=== PATIENT | female | born 1945 | race Caucasian/White ===

== ENCOUNTER 2018-12-23 14:27 | Inpatient (IN) | payer OTHER ==
[~2018-12-23] VITALS: Ht 170.2 cm; Wt 75.7 kg
--- NOTE | ~2018-12-23 | CON ---
[address] [address] CONSULTATION Name: RENETTA SIMPSON Dagoberto Room: [address] IN ..#: [id number] Admission: 12/23/18 Attend Phys: Mikael Corona MD Discharge: Date of : 49 Report #: [id number] THIS REPORT FOR: //name// CC: Mauro Corona DATE OF SERVICE: 12/24/2018 NEUROLOGY CONSULT: HISTORY OF PRESENT ILLNESS: The patient is a 73-year-old female who has a history of orthostatic hypotension. In fact, she is followed by Dr. Hanna who is a national accounts sales. She last saw him last week and had an echocardiogram at that time. The patient has bilateral hip pain and got a cortisone injection in both hips on Friday. When she checked her blood pressure, she felt that it was high, was in the 140s over 99. When she saw what her blood pressure was, she decided not to take the Florinef and had not taken it for 3 days. Yesterday, when she went to lunch with friends, she began to feel overheated. She took off her coat. She applied a cold cloth to her forehead, but that did not help. Her friend who was with her at lunch, states that the patient was out for approximately 15 seconds. PAST MEDICAL HISTORY: Orthostatic hypotension, asthma, hiatal hernia, GERD, hypothyroidism. PAST SURGICAL HISTORY: Unremarkable. MEDICATIONS: Levothyroxine 88 mcg daily, Nexium 40 mg daily, Singulair 10 mg daily, Florinef 0.1 mg daily. ALLERGIES: LEVAQUIN. PHYSICAL EXAMINATION: VITAL SIGNS: Blood pressure in the ER 110/40. Blood pressure this morning 124/50, pulse rate 60, respiratory rate 18, bedside pulse oximetry 99% on room air, temperature 36.3. LABORATORY DATA: Hematology: White blood cell count 7.4, hemoglobin 11.8, hematocrit 37.1, MCV 80.9, platelet count 337,000. Urinalysis 1+ ketones, trace blood. Chemistry: Sodium 144, potassium 4.3, chloride 108, carbon dioxide 28, BUN 18, creatinine 0.8, GFR 71, glucose 98, calcium 9.1, magnesium 2.2. Liver functions unremarkable. IMAGING: CT scan of the head demonstrates no acute abnormalities, diffuse cerebral atrophy [place] [address] CONSULTATION Name: RENETTA SIMPSON Room: [address]#: [id number] Admission: 12/23/18 Attend Phys: Mikael Corona MD Discharge: Date of : 49 Report #: [id number] NEUROLOGIC: Cranial nerves 2-12 are grossly intact. Motor exam demonstrates symmetrical strength in all 4 extremities with tone and bulk normal. Plantar responses are flexor bilaterally. Coordination reveals intact [id number]. Gait was not tested. IMPRESSION: This patient has a documented history of orthostatic hypotension and had not been taking her medication for several days. I explained to her that if she were to become over heated for example, in a crowded room or taking a hot shower that will lower her blood pressure and that in combination with not taking her medication caused this episode. She is now back on Florinef 0.1 mg daily. I recommend she continue the medication and explained to her that she cannot take the medication on an as needed basis that she needs to take it every morning. She told me that her national accounts sales, Dr. Hanna, has already told her this. Beyond that, I have no further recommendations. The patient is being seen by Cardiology here in the hospital. Perhaps, a cardiac arrhythmia needs to be considered, but the description of the event itself seems most consistent with orthostatic hypotension. I thank you for your kind referral of this patient. By: 1059 Leelee Sinha DO /tere
[2018-12-23 14:29] VITALS: BP 110/40
[2018-12-23] MEDS ORDERED: SINGULAIR 10 MG10 M1 PO (14:36)
[2018-12-23] MEDS ORDERED: NEXIUM40 MG PO (14:36)
[2018-12-23] MEDS ORDERED: SYNTHROID88 MCG PO (14:36)
[2018-12-23] MEDS ORDERED: FLORINEF ACETA0.1 MG PO (14:37)
[2018-12-23 15:05] LABS: HEMATOCRIT 40.3 % (37.0-47.0); HEMOGLOBIN 12.8 gm/dL (12.0-15.0); MCH 25.6 pg (26.0-34.0); MCHC 31.7 g/dL (28.0-37.0); MCV 80.7 fL (80.0-100.0); MPV 8.3 fl. (7.2-11.1); NUCLEATED RBCS 0 /100WBC; PLATELET COUNT* 363 thou/uL (150-400); RDW-CV 16.6 % (10.5-14.5); WBC 8.6 thou/uL (4.0-11.0)
[2018-12-23 15:23] LABS: ANION GAP 12 mmol/L (7-16); BUN 19 mg/dL (7-18); CALCIUM 8.8 mg/dL (8.5-10.1); CHLORIDE 103 mmol/L (98-107); CO2 26 mmol/L (21-32); GLUCOSE 130 mg/dL (70-99); POTASSIUM 3.6 mmol/L (3.5-5.1); SODIUM 141 mmol/L (136-145); TROPONIN-I LEVEL <0.06 ng/mL (<0.06)
[2018-12-23 15:24] LABS: ALBUMIN 3.7 g/dL (3.4-5.0); ALKALINE PHOSPHATASE 72 U/L (46-116); LIPASE 168 U/L (73-393); NT-PRO BRAIN NAT PEPTIDE 63 pg/mL (<300); SGOT 13 U/L (15-37); SGPT 30 U/L (30-65); TOTAL BILIRUBIN 0.4 mg/dL (<0.1-1.0); TOTAL PROTEIN 7.2 g/dL (6.4-8.2)
[2018-12-23 15:38] LABS: ABSOLUTE BASOPHILS 0.2 thou/uL (0.0-0.2); ABSOLUTE EOSINOPHILS 0.2 thou/uL (0.0-0.7); ABSOLUTE MONOCYTES 0.5 thou/uL (0.0-1.2); ABSOLUTE NEUTROPHILS 4.7 thou/uL (1.6-8.1)
[2018-12-23 15:39] LABS: LARGE PLATELETS OCCASIONAL; PLATELET ESTIMATE ADEQUATE
[2018-12-23 18:08] LABS: URINE BILIRUBIN NEGATIVE (Negative); URINE BLOOD TRACE (Negative); URINE CLARITY CLEAR; URINE COLOR YELLOW; URINE GLUCOSE-RANDOM NEGATIVE (Negative); URINE KETONES 1+ (Negative); URINE LEUKOCYTES-REFLEX NEGATIVE (Negative); URINE NITRITE-REFLEX NEGATIVE (Negative); URINE PROTEIN NEGATIVE (Negative); URINE SPECIFIC GRAVITY 1.015 (1.005-1.030); URINE UROBILINOGEN 0.2 E.U./dl (0.2-1.0)
[2018-12-23 20:00] VITALS: BP 136/66
[2018-12-23 21:21] VITALS: BP 128/54
[2018-12-23] MEDS ORDERED: CARAFATE 1 GM TA1 G1 PO (22:14)
[2018-12-23] MEDS ORDERED: PROAIR HFA8.5 GM SPRAY (22:18)
[2018-12-24] VITALS: BP 135/62
[2018-12-24 04:00] VITALS: BP 136/66; BP 96/46
[2018-12-24] MEDS ORDERED: EXCEDRIN CAPLE1 EACH PO (04:33)
[2018-12-24 05:01] LABS: ABSOLUTE BASOPHILS 0.1 thou/uL (0.0-0.2); ABSOLUTE EOSINOPHILS 0.3 thou/uL (0.0-0.7); ABSOLUTE LYMPHOCYTES 1.9 thou/uL (0.8-5.3); ABSOLUTE MONOCYTES 0.7 thou/uL (0.0-1.2); ABSOLUTE NEUTROPHILS 4.4 thou/uL (1.6-8.1); HEMATOCRIT 37.1 % (37.0-47.0); HEMOGLOBIN 11.8 gm/dL (12.0-15.0); MCH 25.7 pg (26.0-34.0); MCHC 31.7 g/dL (28.0-37.0); MCV 80.9 fL (80.0-100.0); MONOCYTES 9.3 %; MPV 8.4 fl. (7.2-11.1); NUCLEATED RBCS 0 /100WBC; PLATELET COUNT* 337 thou/uL (150-400); POLYS 58.7 %; RBC 4.59 mil/uL (4.20-5.00); RDW-CV 16.6 % (10.5-14.5); WBC 7.4 thou/uL (4.0-11.0)
[2018-12-24 05:10] LABS: CALCIUM 9.1 mg/dL (8.5-10.1); CREATININE 0.8 mg/dL (0.6-1.3); MAGNESIUM 2.2 mg/dL (1.8-2.4); POTASSIUM 4.3 mmol/L (3.5-5.1)
--- NOTE | 2018-12-24 05:33 | NUR ---
RECEIVED REPORT FROM ED RN. PT TRANSFERRED TO 203. PT A&OX4. VSS. CHANNELER INSOLE IN PLACE. ADMISSION HISTORY AND PHYSICAL ASSESSMENT COMPLETED & CHARTED. FALL FORM SIGNED. ORIENTED TO ROOM & CALL LIGHT. PT ON RA WITH 96% O2 SAT. PT TRACING SR/SB ON TELE. PT UPSTANDBY TO RESTROOM. INSTRUCTED ON NPO EXCEPT MEDS/SIPS OF LIQUID. COMMUNICATES UNDERSTANDNING. PT COMPLAINED OF HEADACHE- DR GEORGE INFORMED WITH NEW ORDER. HOURLY ROUNDING OBSERVED. CALL LIGHT WITHIN REACH.
[2018-12-24 08:04] VITALS: BP 124/50
--- NOTE | 2018-12-24 08:20 | NUR ---
ASSUMED CARE OF PT THIS AM AROUND 07- STRADDLE TRUCK DRIVER IN PLACE ORDERED, TRACING SR- UPON ASSESSMENT PT NOTED TO BE RESTING IN BED, WATCHING TV- PT A&O X4- CONTINENT OF BOWEL AND BLADDER- SBA WITH TRANSFERS FOR SAFETY- LCTA, RESP EVEN AND UN-LABORED- VSS, O2 SAT 97% ON RA- ABD SOFT/ROUND/NON-TENDER, BS X4 QUADS- LAST BM REPORTED THIS AM- PT CURRENLTY NPO PENDING CARDIOLOGY CONSULT- IV NOTED TO LEFT WRIST INTACT, IVF INFUSSING PRESCIBED- PT DENIES ANY C/O PAIN/DISCOMFORT AT THIS TIME- CALL LIGHT AND PERSONAL BELONGINGS WITH IN REACH- PT MAKES NEEDS KNOWN- ALL NEEDS MET AT THIS TIME-WCTM
[2018-12-24 12:35] VITALS: BP 122/48
[2018-12-24 13:50] LABS: CHOLESTEROL 202 mg/dL (<200); HDL CHOLESTEROL 70 mg/dL (>40); LDL CHOLESTEROL 123 mg/dL (<100); SERUM ASSESSMENT CLEAR; TC:HDL 2.9 Ratio (Not establshd); TRIGLYCERIDE 46 mg/dL (<150); VLDL 9 mg/dL (<40)
--- NOTE | 2018-12-24 15:04 | EKG ---
[place] [address] ELECTROCARDIOGRAM REPORT Name: RENETTA SIMPSON Room: [address] ADM IN M.R.#: [id number] Admission: 12/23/18 Attend Phys: Mikael Corona MD Discharge: Date of : 49 Report #: [id number] THIS REPORT FOR: //name// [facility] ED Test Date: 2018-12-23 Test Time: 14:42:40 Pat Name: RENETTA SIMPSON Department: Room: [facility] Gender: F Residential Property Consultant: Anjelica CERDA : 1945 Requested By: Melodie Castellano Order Number: [id number] MD: Art Blancas Measurements Intervals [place] Rate: 55 P: 62 IN: 169 QRS: 56 QRSD: 122 T: 61 QT: 473 QTc: 453 Interpretive Statements Sinus rhythm Nonspecific intraventricular conduction delay No previous ECG available for comparison Electronically Signed On 12-24-2018 15:04:01 CDT by Art Blancas [email or web address] <ELECTRONICALLY SIGNED> By: Art Blancas MD, [facility] 12/24/18 1504 1442 144 Art Blancas MD, FACC /EPI
--- NOTE | 2018-12-24 15:07 | EKG ---
[place] [address] ELECTROCARDIOGRAM REPORT Name: RENETTA SIMPSON Room: [address] ADM IN M.R.#: [id number] Admission: 12/23/18 Attend Phys: Mikael Corona MD Discharge: Date of : 49 Report #: [id number] THIS REPORT FOR: //name// [facility] Test Date: 2018-12-24 Test Time: 02:47:29 Pat Name: RENETTA SIMPSON Department: Room: [facility] Gender: F Midwife Practitioner: : 1945 Requested By: Mikael Corona Order Number: [id number] MD: Art Blancas Measurements Intervals [place] Rate: 58 P: 47 [place]: 156 QRS: 55 QRSD: 96 T: 65 QT: 448 QTc: 441 Interpretive Statements Sinus rhythm Abnormal R-wave progression, early transition No previous ECG available for comparison Electronically Signed On 12-24-2018 15:06:56 CDT by Art Blancas [email or web address] <ELECTRONICALLY SIGNED> By: Art Blancas MD, [facility] 12/24/18 1506 0247 [id number] Art Blancas MD, FACC /EPI
[2018-12-24 16:45] VITALS: BP 121/49
--- NOTE | 2018-12-24 17:35 | NUR ---
PT CURRENTLY RESTING IN BED, VISITORS AT SIDE- RUBBISH COLLECTION SUPERVISOR IN PLACE ORDERED, TRACING SR- IV TO LEFT WRIST IN PLACE ANDN SL- IVF D/C'D THIS SHIFT- STRESS TEST COMPLETED THIS SHIFT AND REPORTED TO BE NEGATIVE PER THIS SHIFT- PT DENIES ANY C/O PAIN/DISCOMFORT AT THIS TIME-CALL LIGHT AND PERSONAL BELONGINGS WITH IN REACH- PT MAKES NEEDS KNOWN- ALL NEEDS MET AT THIS TIME-BALDOMERO
[2018-12-24 20:00] VITALS: BP 100/47
[2018-12-24 22:06] LABS: GLYCOHEMOGLOBIN (HGB A1C) 5.5 % (4.8-5.6)
[2018-12-25] VITALS: BP 99/51
[2018-12-25 04:00] VITALS: BP 109/51
[2018-12-25 05:39] LABS: CALCIUM 8.8 mg/dL (8.5-10.1); CREATININE 0.8 mg/dL (0.6-1.3); POTASSIUM 4.4 mmol/L (3.5-5.1)
--- NOTE | 2018-12-25 06:47 | NUR ---
ASSUMED CARE OF PT AFTER REPORT AT 1930. PT A&OX4. VSS. PHYSICAL ASSESSMENT COMPLETED AND CHARTED. PT ON RA WITH 97% O2 SAT.PT TRACING SR/SB ON TELE. PT UPADLIB TO RESTROOM. PT DENIES ANY PAIN OR DISCOMFORT. CALL LIGHT WITHIN REACH.
[2018-12-25 08:00] VITALS: BP 129/43
[2018-12-25 12:00] VITALS: BP 122/50
[2018-12-25] MEDS ORDERED: ASPIR 8181 MG PO (12:08)
[2018-12-25 13:28] VITALS: BP 122/50
--- NOTE | 2018-12-25 14:32 | NUR ---
PT CARE ASSUMED AFTER REPORT. ASSESSMENT COMPLETE. SR ON MONITOR. PT DISCHARGED HOME WITH . COPY OF DISCHARGE INSTRUCTIONS TO PT WITH EXPLAINATION. PT VERBALIZED UNDERSTANDING. NO NEW PRECRIPTIONS. IV ACCESS REMOVED. PT TAKEN PER WHEELCHAIR TO MAIN ENTRANCE.
--- NOTE | 2018-12-29 15:47 | CARDNUC ---
[place] [address] CARDIAC NUCLEAR IMAGING REPORT Name: RENETTA SIMPSON Room: [address]#: [id number] Admission: 12/23/18 Attend Phys: Mikael Corona MD Discharge: 12/25/18 Date of : 49 Date of Service: 12/29/18 1547 Report #: [id number] THIS REPORT FOR: //name// ADDENDUM APPROVED REPORT Study performed: 12/24/2018 10:03:00 Indication: Syncope Patient Location: In-Patient Room #: 203 Stress Tech: Flor Giang Stress Nurse: Becca Taylor RN Ht: 5 ft 7 in Wt: 167 lbs BSA: 1.87 m2 BMI: 26.15 Medical History Medical History: hyperlipidemia Medications: atorvastatin, enoxaparin, asa81 Allergies: levofloxacin Cardiac Risk Factors: age, hyprelipidemia, family hx Exercise History: Physically active Resting Data Rest SPECT myocardial perfusion imaging was performed in supine position 30 minutes following the intravenous injection of 10.9 mCi of Tc-99m Sestamibi. Time of rest injection: 13:00 The images were gated to evaluate regional wall motion and calculate left ventricular ejection fraction. Administration Route: IV Administration Site: Left AC Pharmacologic Stress Pharmacologic stress test was performed by injecting Regadenoson 0.4 mg IV push over 10-15 seconds immediately followed by the intravenous injection of 36.0 mCi of Tc-99m Sestamibi. Time of stress injection: 14:35 Administration Route: IV Administration Site: Left AC Heart Rate at time of stress injection: 110 bpm. Gated Stress SPECT was performed 40 minutes after stress injection. The images were gated to evaluate regional wall motion and calculate left [place] [address] CARDIAC NUCLEAR IMAGING REPORT Name: RENETTA SIMPSON Room: [address]#: [id number] Admission: 12/23/18 Attend Phys: Mikael Corona MD Discharge: 12/25/18 Date of : 49 Date of Service: 12/29/18 1547 Report #: [id number] Prone imaging was performed. Stress Test Details Stress Test: Pharmacologic stress testing performed using 0.4 mg of regadenoson per 5 mL given IV over 10 seconds. Reason for pharmacologic stress test: orthostatic hypotension. HR Max Heart Rate (APMHR): 149 bpm Resting HR: 66 bpm Target HR (85% APMHR): 126 bpm Max HR Achieved: 110 bpm % of APMHR: 73 Recovery HR: 104 bpm BP Resting BP: 118/81 mmHg Max BP: 121/68 mmHg Recovery BP: 115/69 mmHg ECG Resting ECG: Sinus Rhythm Stress ECG: Sinus Rhythm ST Change: None Arrhythmia: None Recovery ECG: Sinus Rhythm Recovery ST Change: None Recovery Arrhythmia: None Clinical Reason for Termination: Completed protocol The patient tolerated Lexiscan infusion without significant symptoms. Stress ECG Conclusion The baseline 12-lead EKG show sinus rhythm with no significant ST or T wave abnormalities. EKGs obtained during and post left skin infusion show sinus rhythm with no significant ST or T wave changes when compared to baseline. There were no stress-induced arrhythmias. Study Quality Study: Good Artifact: No artifact Study Data At rest, the left ventricular ejection fraction was 86%.. Post stress, the left ventricular ejection was 85%.. [place] [address] CARDIAC NUCLEAR IMAGING REPORT Name: TATIANARENETTA L Room: [address]#: [id number] Admission: 12/23/18 Attend Phys: Mikael Corona MD Discharge: 12/25/18 Date of : 49 Date of Service: 12/29/18 1547 Report #: [id number] TID = 0.62. Perfusion Normal left ventricular perfusion. Wall Motion Normal left ventricular wall motion. Nuclear Conclusion ECG Findings: negative for ischemia Clinical Findings: negative for ischemia Nuclear Findings: negative for ischemia Exercise Capacity: not assessed Left Ventricular Function: normal Risk Study: low Myocardial perfusion images show no defect to suggest infarct or ischemia. Left ventricular systolic function appears normal on gated studies. This is a low risk study. <Conclusion> The baseline 12-lead EKG show sinus rhythm with no significant ST or T wave abnormalities. EKGs obtained during and post left skin infusion show sinus rhythm with no significant ST or T wave changes when compared to baseline. There were no stress-induced arrhythmias. <ELECTRONICALLY SIGNED> By: Juan Carlos Apodaca MD, FACC 12/29/18 1547 1547 1547 Juan Carlos Apodaca MD, FACC /INF
== END 2018-12-25 14:00 | disposition home or self-care (01) | DRG 312 ==
LOC: M.ERS 14:27 → M.2W 15:33 → M.TBA-ER 15:33 → M.2W 21:03
PROVIDERS: Nurse Practitioner; ADMIT Family Medicine
DX: I95.1 Orthostatic hypotension (principal); K21.9 Gastro-esophageal reflux disease without esophagitis; R00.1 Bradycardia, unspecified; E03.9 Hypothyroidism, unspecified; J45.20 Mild intermittent asthma, uncomplicated; G43.909 Migraine, unspecified, not intractable, without status migrainosus; K44.9 Diaphragmatic hernia without obstruction or gangrene; N18.3 Chronic kidney disease, stage 3 (moderate); Z79.82 Long term (current) use of aspirin; Z79.899 Other long term (current) drug therapy; Z88.8 Allergy status to other drugs, medicaments and biological substances